=== PATIENT | male | born 1975 | race Caucasian/White ===

== ENCOUNTER 2017-05-05 19:51 | Emergency (ER) | payer BC ==
[2017-05-05 20:19] VITALS: BP 122/80
--- NOTE | 2017-05-05 21:20 | UC ---
Scottie Prater Gabriel, scribed for Rose Marie Armenta MD on 05/05/17 at 2043 . FLU HPI - HPI Summary HPI Summary: This patient is a 41 year old M presenting to [facility] [place] with a chief complaint of flu like illness since 1430 today. The patient rates the pain 2/10 in severity. Patient reports fever of 101.6, myalgia, and fatigue. Patient denies cough, MOSLEY, ABD pain, rash, throat pain, and nausea. Ibuprofen was taken at approximately 18 :00 h and has decreased his temperature. - History of Current Complaint Chief Complaint: UCRespiratory Stated Complaint: FEVER, AND ACHES Time Seen by Provider: 05/05/17 20:37 Hx Obtained From: Patient Onset/Duration: Lasting Hours, Still Present Severity Currently: Mild Severity Initially: Mild Pain Intensity: 2 Pain Scale Used: 0-10 Numeric Associated Signs & Symptoms: Positive: Fever, Myalgia. Negative: Cough, Headache - Risk Factors Influenza Risk Factors: Negative - Allergy/Home Medications Allergies/Adverse Reactions: Allergies Allergy/AdvReac Type Severity Reaction Status Date / Time No Known Allergies Allergy Verified 05/05/17 20:19 Home Medications: Home Medications Ibuprofen TAB* [Advil TAB*] 600 mg PO PRN 05/05/17 [History] PMH/Surg Hx/FS Hx/Imm Hx Previously Healthy: Yes Other History Of: Negative For: Hepatitis C, Anticoagulant Therapy - Surgical History Surgical History: None - Family History Known Family History: Positive: None - healthy family Negative: Respiratory Disease, Seizure Disorder - Social History Occupation: Employed Full-time Lives: With Family Alcohol Use: Occasionally Substance Use Type: None Smoking Status (MU): Never Smoked Tobacco Review of Systems Constitutional: Fever, Fatigue Skin: Negative Eyes: Negative ENT: Other - small sore on mid tongue. Respiratory: Negative Cardiovascular: Negative Gastrointestinal: Negative Genitourinary: Negative Motor: Negative Neurovascular: Negative Musculoskeletal: Myalgia Neurological: Negative Psychological: Negative Is Patient Immunocompromised?: No All Other Systems Reviewed And Are Negative: Yes Physical Exam Triage Information Reviewed: Yes Appearance: Well-Appearing, No Pain Distress Vital Signs: Initial Vital Signs Temp 99.1 F 05/05/17 20:16 Pulse 95 05/05/17 20:16 Resp 16 05/05/17 20:16 BP 122/80 05/05/17 20:16 Pulse Ox 99 05/05/17 20:16 Vital Signs Reviewed: Yes Eyes: Positive: Conjunctiva Clear ENT: Positive: Pharynx normal, Other - shallow erosion about 5 mm on right mid tongue. No soft palate or gum changes. Neck: Positive: Supple, Nontender, No Lymphadenopathy Respiratory: Positive: Lungs clear, Normal breath sounds Cardiovascular: Positive: RRR, No Murmur Musculoskeletal Exam: Normal Neurological: Positive: Alert, Muscle Tone Normal Psychological Exam: Normal Skin Exam: Normal Diagnostics - Laboratory Diagnostic Studies Completed/Ordered: flu negative and rapid strep negative. Flu Course/Dx - Course Course Of Treatment: symptomatic treatment of viral illness. - Differential Dx/Diagnosis Provider Diagnoses: viral illness. Discharge - Sign-Out/Discharge Documenting (check all that apply): Discharge - Discharge Plan Condition: Stable Disposition: HOME Patient Education Materials: Viral Syndrome (ED) Referrals: No Primary Care Phys,NOPCP [Primary Care Provider] - Additional Instructions: Continue ibuprofen for control of fever, and ensure high intake of fluids. The shallow erosion on your tongue is consistent with a viral illness. This could be the beginning of coxsackievirus, which causes fever and mouth ulcers, but one cannot diagnose that based on the single finding. You can rinse your mouth with warm water and salt to relieve any discomfort ( swish and spit it out). - Billing Disposition and Condition Condition: STABLE Disposition: HOME The documentation as recorded by the Scottie julio Gabriel accurately reflects the service I personally performed and the decisions made by me, Rose Marie Armenta MD.
== END 2017-05-05 21:25 | disposition home or self-care (01) ==
LOC: UCEAST 19:51
DX: B34.9 Viral infection, unspecified (principal)
CPT/HCPCS: 87502; 87651; 99201; G0463